=== PATIENT | female | born 2000 | race Caucasian/White ===

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

== ENCOUNTER 2023-12-31 04:56 | Emergency (ER) | payer OTHER ==
[2023-12-31 05:10] VITALS: RESP 17; TEMP 97.6
[2023-12-31 05:39] LABS: Absolute Neutrophil Ct (ANC) 6.35 x10^3/uL (1.4-6.9); BASOPHIL % 0.4 % (0.0-0.4); Basophil (Absolute #) 0.04 x10^3/uL (0-0.4); Eosinophil % 0.5 % (0.00-5.0); Eosinophil (Absolute #) 0.05 x10^3/uL (0-0.5); Hematocrit 28.5 % (35-47); Hemoglobin 9.7 g/dL (12.0-16.0); IMMATURE GRAN # 0.18 x10^3u/L (0.00-0.03); Lymphocyte (Absolute #) 1.65 x10^3/uL (1.0-4.6); Lymphocytes % 18.1 % (24.0-44.0); Mean Cell Volume 88.2 fL (78-100); Mean Platelet Volume 9.3 fL (7.5-11.0); Monocyte (Absolute #) 0.85 x10^3/uL (0.0-1.3); Monocytes % 9.3 % (0.0-12.0); Neutrophil % 69.7 % (36.0-66.0); Platelet Count 209 x10^3/uL (150-450); Red Blood Count 3.23 x10^6/uL (4.1-5.4); Red Cell Distribution Width 12.8 % (11.5-14.0); White Blood Count 9.1 x10^3/uL (4.0-10.5)
[2023-12-31 05:51] LABS: ALBUMIN 2.8 g/dL (3.5-5.0); ANION GAP 8.7 MEQ/L (5-15); BILIRUBIN,TOTAL 0.3 mg/dL (0.2-1.3); Calcium 8.5 mg/dL (8.4-10.2); Creatinine 1 0.33 mg/dL (0.52-1.04); EST GLOMERULAR FILTRATION RATE 151.2 ML/MIN; Potassium 3.1 mmol/L (3.5-5.1); Total Protein 5.9 g/dL (6.3-8.2)
[2023-12-31 06:10] LABS: Appearance Clear (Clear); Bacteria Rare /HPF (None Seen); Bilirubin Negative (Negative); Blood Negative (Negative); Epithelial Cells Few /HPF (None Seen); Glucose, Urine Negative (Negative); Hyaline Casts NONE SEEN /LPF (0-2); Ketones Negative (Negative); Leukocyte Esterase Negative (Negative); Nitrite Negative (Negative); Protein,Urine Dip Negative (Negative); RBC 0-2 /HPF (0-5); Specific Gravity 1.015 (1.005-1.030); Urobilinogen 0.2 mg/dL (0.2); WBC 0-2 /HPF (0-5)
[2023-12-31 06:15] LABS: ADD URINE CULTURE? NO (NO)
[2023-12-31] MEDS ORDERED: Klor Con ONE (06:51)
[2023-12-31] MEDS: Klor Con PO ONE (06:52)
[2023-12-31 07:02] VITALS: BP 119/68; PULSE 87
[2023-12-31 07:06] VITALS: O2SAT 97
--- NOTE | 2023-12-31 07:06 | ERPHSYRPT ---
- History of Present Illness Time Seen by Provider: 12/31/23 05:15 Historian: patient, family Exam Limitations: no limitations Patient Subjective Stated Complaint: chest pain that radiates to middle of back that started around 2099 last night while patient was watching tv Triage Nursing Assessment: pt ambulatory to bed by self with steady gait, pt alert and oriented x3, skin pwd, pt c/o center chest pain that radiates to the center of her back since 2099 last night, pt started when she was watching tv and pt states it hurts worse when she inhales, radial pulses equal and strong bilateral, heart sounds regular Physician History: This is a 23-year-old white female patient who is 34 weeks and was watching TV last evening on 12/30/2023 when she had a sudden onset of central, substernal chest pressure that radiated into her back. It was constant and worse with deep breathing. She has not been coughing. She has had no hemoptysis. She does not have shortness of breath. There is no history of bleeding or clotting disorder. She has no history of coronary artery disease. She has no history of DVT or pulmonary embolus. She was concerned because it became more constant. Patient denies abdominal pain. She also denies vaginal discharge. 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 tomorrow, 01/01/2024 Timing/Duration: yesterday Quality: pressure Location: substernal, central Chest Pain Radiation: back Severity of Pain-Max: moderate Severity of Pain-Current: none Modifying Factors: Improves With: breathing (Deep breathing exacerbated her symptoms initially) Associated Symptoms: back pain (The chest pain initially did radiate into her back), No abdominal pain, No shortness of breath, No cough Prior Chest Pain/Cardiac Workup: no prior chest pain, no prior cardiac workup Nitro Today/Relief: no nitro taken today Aspirin Treatment Today: no aspirin today Allergies/Adverse Reactions: azithromycin [From Zithromax] Allergy (Intermediate, Verified 12/31/23 04:58) Rash Home Medications: 21/Iron Fu/Folic Acid [ Complete Caplet] 1 tab PO DAILY 12/31/23 [History] Hx Tetanus, Diphtheria Vaccination/Date Given: Yes Hx Influenza Vaccination/Date Given: No Hx Pneumococcal Vaccination/Date Given: No Immunizations Up to Date: No Travel Risk - International Travel Have you traveled outside of the country in past 3 weeks: No - Emerging Infectious Disease Are you exhibiting symptoms associated with any current EIDs: No - Review of Systems Constitutional: No Symptoms Eyes: No Symptoms Ears, Nose, & Throat: No Symptoms Respiratory: Dyspnea (Mild initially with deep breathing) Cardiac: Chest Pain (Described more as a pressure) Abdominal/Gastrointestinal: No Symptoms Genitourinary Symptoms: No Symptoms Musculoskeletal: No Symptoms Skin: No Symptoms Neurological: No Symptoms Psychological: No Symptoms Endocrine: No Symptoms Hematologic/Lymphatic: No Symptoms Immunological/Allergic: No Symptoms All Other Systems: Reviewed and Negative - Past Medical History Pertinent Past Medical History: No Neurological History: No Pertinent History ENT History: No Pertinent History Cardiac History: No Pertinent History Respiratory History: No Pertinent History Endocrine Medical History: No Pertinent History Musculoskeletal History: No Pertinent History GI Medical History: No Pertinent History History: No Pertinent History Psycho-Social History: No Pertinent History Female Reproductive Disorders: No Pertinent History Other Medical History: vaginal delivery - Past Surgical History Past Surgical History: No Neuro Surgical History: No Pertinent History Cardiac: No Pertinent History Respiratory: No Pertinent History Gastrointestinal: No Pertinent History Genitourinary: No Pertinent History Musculoskeletal: No Pertinent History Female Surgical History: No Pertinent History - Female History Hx Now: Yes Gestational Age: 34 weeks - Social History Smoking Status: Never smoker Exposure to second hand smoke: No Drug Use: none Patient Lives Alone: No - Nursing Vital Signs Nursing Vital Signs: Initial Vital Signs Temperature 97.6 F 12/31/23 04:57 Pulse Rate 100 H 12/31/23 04:57 Respiratory Rate 17 12/31/23 04:57 Blood Pressure 113/67 12/31/23 04:57 O2 Sat by Pulse Oximetry 97 12/31/23 04:57 Pain Scale Pain Intensity 10 - Physical Exam General Appearance: no apparent distress, alert, anxiety Eye Exam: PERRL/EOMI, eyes nml inspection Ears, Nose, Throat Exam: normal ENT inspection, moist mucous membranes Neck Exam: normal inspection, non-tender, supple, full range of motion Respiratory Exam: normal breath sounds, lungs clear, airway intact, No chest tenderness, No respiratory distress Cardiovascular Exam: regular rate/rhythm, normal heart sounds, normal peripheral pulses Gastrointestinal/Abdomen Exam: soft, normal bowel sounds, No tenderness Pelvic Exam: not done Rectal Exam: not done Back Exam: normal inspection, normal range of motion, No CVA tenderness, No vertebral tenderness Extremity Exam: normal inspection, normal range of motion, pelvis stable Neurologic Exam: alert, oriented x 3, cooperative, gold miner II-XII nml as tested, normal mood/affect, nml cerebellar function, nml station & gait, sensation nml Skin Exam: normal color, warm, dry Lymphatic Exam: No adenopathy SpO2 Interpretation: normal SpO2: 97 O2 Delivery: Room Air - Course Nursing assessment & vital signs reviewed: Yes EKG Interpreted by Me: RATE ([id number]), Sinus Rhythm, NORMAL AXIS, NORMAL INTERVALS, NORMAL QRS, Other (Acute ischemic changes on today's twelve-lead EKG.) Ordered Tests: Active Orders 24 hr Category Date Time Status 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 Care 12/31/23 05:19 Active EKG-ER Only STAT Care 12/31/23 05:19 Active IV Insertion STAT Care 12/31/23 05:19 Active Pulse Oximetry (ED) STAT Care 12/31/23 05:19 Active CBC W DIFF Stat Lab 12/31/23 05:35 Completed CMP Stat Lab 12/31/23 05:35 Completed TROPONIN Q4H Lab 12/31/23 05:35 Completed TROPONIN Q4H Lab 12/31/23 09:30 Ordered TROPONIN Q4H Lab 12/31/23 13:30 Ordered UA W/RFX UR CULTURE Stat Lab 12/31/23 05:48 Completed Medication Summary Discontinued Medications Generic Name Dose Route Start Last Admin Trade Name Freq PRN Reason Stop Dose Admin Potassium Chloride 20 meq 12/31/23 06:49 12/31/23 06:52 Potassium Chloride Tab 10 Meq Tab PO 12/31/23 06:50 20 meq STAT ONE Administration Potassium Chloride Confirm 12/31/23 06:51 Potassium Chloride Tab 10 Meq Tab Administered 12/31/23 06:52 Dose 20 meq .ROUTE .STK-MED ONE Lab/Rad Data: Laboratory Result Diagrams 12/31/23 05:35 12/31/23 05:35 Laboratory Results 12/31/23 12/31/23 12/31/23 Range/Units 05:48 05:35 05:35 WBC (4.0-10.5) x10^3/uL RBC (4.1-5.4) x10^6/uL Hgb (12.0-16.0) g/dL Hct (35-47) % MCV (78-100) fL MCH (26-32) pg MCHC (32-36) g/dL RDW (11.5-14.0) % Plt Count (150-450) x10^3/uL MPV (7.5-11.0) fL Gran % (36.0-66.0) % Immature Gran % (Auto) (0.00-0.4) % Nucleat RBC Rel Count (0.00-0.1) % Eos # (Auto) (0-0.5) x10^3/uL Immature Gran # (Auto) (0.00-0.03) x10^3u/L Absolute Lymphs (auto) (1.0-4.6) x10^3/uL Absolute Monos (auto) (0.0-1.3) x10^3/uL Absolute Nucleated RBC (0.00-0.01) x10^3u/L Lymphocytes % (24.0-44.0) % Monocytes % (0.0-12.0) % Eosinophils % (0.00-5.0) % Basophils % (0.0-0.4) % Absolute Granulocytes (1.4-6.9) x10^3/uL Basophils # (0-0.4) x10^3/uL Sodium 135 (135-145) mmol/L Potassium 3.1 L (3.5-5.1) mmol/L Chloride 109 H (98-107) mmol/L Carbon Dioxide 20 L (22-30) mmol/L Anion Gap 8.7 (5-15) MEQ/L BUN 7 (7-17) mg/dL Creatinine 0.33 L (0.52-1.04) mg/dL Estimated GFR 151.2 ML/MIN Glucose 95 (74-106) mg/dL Calcium 8.5 (8.4-10.2) mg/dL Total Bilirubin 0.30 (0.2-1.3) mg/dL AST 23 (14-36) U/L ALT 12 (0-35) U/L Alkaline Phosphatase 76 (38-126) U/L Troponin I < 0.012 (0.000-0.033) ng/mL Serum Total Protein 5.9 L (6.3-8.2) g/dL Albumin 2.8 L (3.5-5.0) g/dL Urine Color Yellow (Yellow) Urine Appearance Clear (Clear) Urine pH 6.0 (4.6-8.0) Ur Specific Randall 1.015 (1.005-1.030) Urine Protein Negative (Negative) Urine Glucose (UA) Negative (Negative) mg/dL Urine Ketones Negative (Negative) Urine Blood Negative (Negative) Urine Nitrite Negative (Negative) Urine Bilirubin Negative (Negative) Urine Urobilinogen 0.2 (0.2) mg/dL Ur Leukocyte Esterase Negative (Negative) U Hyaline Cast (Auto) NONE SEEN (0-2) /LPF Urine Microscopic RBC 0-2 (0-5) /HPF Urine Microscopic WBC 0-2 (0-5) /HPF Ur Epithelial Cells Few (None Seen) /HPF Urine Bacteria Rare A (None Seen) /HPF Urine Culture Reflexed NO (NO) 12/31/23 Range/Units 05:35 WBC 9.1 (4.0-10.5) x10^3/uL RBC 3.23 L (4.1-5.4) x10^6/uL Hgb 9.7 L (12.0-16.0) g/dL Hct 28.5 L (35-47) % MCV 88.2 (78-100) fL MCH 30.0 (26-32) pg MCHC 34.0 (32-36) g/dL RDW 12.8 (11.5-14.0) % Plt Count 209 (150-450) x10^3/uL MPV 9.3 (7.5-11.0) fL Gran % 69.7 H (36.0-66.0) % Immature Gran % (Auto) 2.0 H (0.00-0.4) % Nucleat RBC Rel Count 0.0 (0.00-0.1) % Eos # (Auto) 0.05 (0-0.5) x10^3/uL Immature Gran # (Auto) 0.18 H (0.00-0.03) x10^3u/L Absolute Lymphs (auto) 1.65 (1.0-4.6) x10^3/uL Absolute Monos (auto) 0.85 (0.0-1.3) x10^3/uL Absolute Nucleated RBC 0.00 (0.00-0.01) x10^3u/L Lymphocytes % 18.1 L (24.0-44.0) % Monocytes % 9.3 (0.0-12.0) % Eosinophils % 0.5 (0.00-5.0) % Basophils % 0.4 (0.0-0.4) % Absolute Granulocytes 6.35 (1.4-6.9) x10^3/uL Basophils # 0.04 (0-0.4) x10^3/uL Sodium (135-145) mmol/L Potassium (3.5-5.1) mmol/L Chloride (98-107) mmol/L Carbon Dioxide (22-30) mmol/L Anion Gap (5-15) MEQ/L BUN (7-17) mg/dL Creatinine (0.52-1.04) mg/dL Estimated GFR ML/MIN Glucose (74-106) mg/dL Calcium (8.4-10.2) mg/dL Total Bilirubin (0.2-1.3) mg/dL AST (14-36) U/L ALT (0-35) U/L Alkaline Phosphatase (38-126) U/L Troponin I (0.000-0.033) ng/mL Serum Total Protein (6.3-8.2) g/dL Albumin (3.5-5.0) g/dL Urine Color (Yellow) Urine Appearance (Clear) Urine pH (4.6-8.0) Ur Specific Randall (1.005-1.030) Urine Protein (Negative) Urine Glucose (UA) (Negative) mg/dL Urine Ketones (Negative) Urine Blood (Negative) Urine Nitrite (Negative) Urine Bilirubin (Negative) Urine Urobilinogen (0.2) mg/dL Ur Leukocyte Esterase (Negative) U Hyaline Cast (Auto) (0-2) /LPF Urine Microscopic RBC (0-5) /HPF Urine Microscopic WBC (0-5) /HPF Ur Epithelial Cells (None Seen) /HPF Urine Bacteria (None Seen) /HPF Urine Culture Reflexed (NO) - Progress Progress: improved, re-examined Air Movement: good Progress Note: 12/31/23 07:09 My medical decision making and the assignment of moderate complexity to this patient's medical issue today is based on review of the patient's past medical history, review of the patient's medication list, review of patient drug allergy list, review of history of present illness and physical findings on examination. Patient's workup includes placement of intravenous line, CBC, CMP, twelve-lead EKG, troponin level, urinalysis. Differential diagnosis includes symptoms of , muscle skeletal pain, anemia of , myocardial infarction, electrolyte abnormalities, arrhythmia I did not order a D-dimer level as this would likely be elevated and I think the patient has a low probability of a pulmonary embolism. I did discuss this with the patient. I also did not order a chest x-ray as she is 34 weeks , she has a room air oxygen saturation level 99%, she is not tachycardic and she has not had a fever or cough symptoms. She has no flulike symptoms. 12/31/23 07:12 I told the patient to make certain that she discusses last evening symptoms of chest pain with her division commander. Blood Culture(s) Obtained: No Antibiotics given: No Counseled pt/family regarding: lab results, diagnosis, need for follow-up Medical Desision Making - Independent Historian Additional History obtained from: Spouse - Diagnostic Testing Diagnostic test were ordered, analyzed, and reviewed by me: Yes - Risk of complications The pt has a mod risk of morbidity or mortality based on: Need for prescription drug management - Departure Departure Disposition: Home Clinical Impression: Nonspecific chest pain, Hypokalemia Condition: Stable Critical Care Time: No Referrals: ROLDAN PRETTY MD [Primary Care Provider] - Follow up/PCP as directed Additional Instructions: Drink plenty fluids. Take your medication as prescribed. Follow-up with your division commander at your scheduled appointment tomorrow, 01/01/2024. Prescriptions: Potassium Chloride Tab* [Klor Con] 10 meq PO DAILY #4 tab
== END 2023-12-31 07:22 | disposition home or self-care (01) ==
LOC: ED 04:56
DX: R07.89 Other chest pain (principal); E87.6 Hypokalemia; Z33.1 Pregnant state, incidental
CPT/HCPCS: 36000; 36415; 80053; 81001; 84484; 85025; 93005; 93041; 94760; 99284; A9270-GY

== ENCOUNTER 2024-01-25 15:55 | Observation (INO) | payer OTHER ==
[2024-01-25 16:17] VITALS: BP 132/64; PULSE 121; RESP 18; TEMP 97.9; O2SAT 99
[2024-01-25 16:48] LABS: Amphetamine,Urine NEGATIVE (NEGATIVE); Barbiturate,Urine NEGATIVE (NEGATIVE); Benzodiazepine,Urine NEGATIVE (NEGATIVE); Cocaine,Urine NEGATIVE (NEGATIVE); Methadone,Urine NEGATIVE (NEGATIVE); Opiate,Urine NEGATIVE (NEGATIVE); PCP,Urine NEGATIVE (NEGATIVE); THC,Urine NEGATIVE (NEGATIVE)
== END 2024-01-25 17:38 | disposition home or self-care (01) ==
LOC: OB 15:55
PROVIDERS: ADMIT Family Medicine; ATTEND Family Medicine
DX: Z34.83 Encounter for supervision of other normal pregnancy, third trimester (principal); Z3A.37 37 weeks gestation of pregnancy
CPT/HCPCS: 80307

== ENCOUNTER 2024-01-31 22:03 | Observation (INO) | payer OTHER ==
[2024-01-31 22:41] VITALS: RESP 20; TEMP 97.7; O2SAT 98
[2024-01-31 23:37] VITALS: BP 119/59; PULSE 95
== END 2024-01-31 23:47 | disposition home or self-care (01) ==
LOC: OB 22:03
PROVIDERS: ADMIT Obstetrics & Gynecology; ATTEND Obstetrics & Gynecology
DX: Z34.83 Encounter for supervision of other normal pregnancy, third trimester (principal); Z3A.38 38 weeks gestation of pregnancy
CPT/HCPCS: G0378; G0379

== ENCOUNTER 2024-02-04 01:57 | Observation (INO) | payer OTHER ==
[2024-02-04 02:54] VITALS: BP 114/67; PULSE 134; RESP 20; TEMP 97.8; O2SAT 99
[2024-02-04] MEDS ORDERED: Zofran 4 MG/2 ML VIAL IV PRN ×2 (03:05→03:20)
[2024-02-04] MEDS ORDERED: Lactated Ringers 1,000 ML IV ONE (03:09)
[2024-02-04] MEDS: Lactated Ringers 1,000 ML IV ONE (03:10)
[2024-02-04 03:11] LABS: Appearance Clear (Clear); Bacteria Few /HPF (None Seen); Bilirubin Negative (Negative); Blood Negative (Negative); Epithelial Cells Few /HPF (None Seen); Glucose, Urine Negative (Negative); Hyaline Casts NONE SEEN /LPF (0-2); Ketones 15 (Negative); Leukocyte Esterase Small (Negative); Nitrite Negative (Negative); Ph 7.5 (4.6-8.0); Protein,Urine Dip 30 (Negative); RBC 0-2 /HPF (0-5)
[2024-02-04 03:17] LABS: ADD URINE CULTURE? YES (NO)
[2024-02-04 03:22] LABS: Amphetamine,Urine NEGATIVE (NEGATIVE); Barbiturate,Urine NEGATIVE (NEGATIVE); Benzodiazepine,Urine NEGATIVE (NEGATIVE); Cocaine,Urine NEGATIVE (NEGATIVE); Methadone,Urine NEGATIVE (NEGATIVE); Opiate,Urine NEGATIVE (NEGATIVE); PCP,Urine NEGATIVE (NEGATIVE); THC,Urine NEGATIVE (NEGATIVE)
== END 2024-02-04 05:00 | disposition home or self-care (01) ==
LOC: UNDOADMOB 01:57 → MED SURG 01:57
PROVIDERS: ADMIT Family Medicine; ATTEND Family Medicine
DX: Z34.83 Encounter for supervision of other normal pregnancy, third trimester (principal); Z3A.38 38 weeks gestation of pregnancy
CPT/HCPCS: 80307; 81001; 87086; G0378; G0379

== ENCOUNTER 2024-02-04 19:28 | Observation (INO) | payer OTHER ==
[2024-02-04 20:18] LABS: Absolute Neutrophil Ct (ANC) 5.97 x10^3/uL (1.4-6.9); BASOPHIL % 0.1 % (0.0-0.4); Basophil (Absolute #) 0.01 x10^3/uL (0-0.4); Eosinophil % 0.3 % (0.00-5.0); Eosinophil (Absolute #) 0.02 x10^3/uL (0-0.5); Hematocrit 31.6 % (35-47); Hemoglobin 10.4 g/dL (12.0-16.0); IMMATURE GRAN # 0.13 x10^3u/L (0.00-0.03); IMMATURE GRAN % 1.7 % (0.00-0.4); Lymphocyte (Absolute #) 0.93 x10^3/uL (1.0-4.6); Lymphocytes % 12.1 % (24.0-44.0); Mean Cell Volume 82.7 fL (78-100); Mean Corpuscular Hemoglobin 27.2 pg (26-32); Mean Corpuscular Hgb Concent. 32.9 g/dL (32-36); Mean Platelet Volume 9.4 fL (7.5-11.0); Monocyte (Absolute #) 0.63 x10^3/uL (0.0-1.3); Monocytes % 8.2 % (0.0-12.0); Neutrophil % 77.6 % (36.0-66.0); Platelet Count 268 x10^3/uL (150-450); Red Blood Count 3.82 x10^6/uL (4.1-5.4); Red Cell Distribution Width 14.8 % (11.5-14.0); White Blood Count 7.7 x10^3/uL (4.0-10.5)
[2024-02-04] MEDS: Lactated Ringers 1,000 ML IV ONE (20:29)
[2024-02-04 20:30] LABS: ADD URINE CULTURE? NO (NO); Appearance Clear (Clear); Bacteria None Seen /HPF (None Seen); Bilirubin Negative (Negative); Blood Negative (Negative); Epithelial Cells None Seen /HPF (None Seen); Glucose, Urine Negative (Negative); Hyaline Casts NONE SEEN /LPF (0-2); Ketones 15 (Negative); Leukocyte Esterase Trace (Negative); Nitrite Negative (Negative); Protein,Urine Dip Negative (Negative); RBC 0-2 /HPF (0-5); WBC 0-2 /HPF (0-5)
[2024-02-04] MEDS ORDERED: TYLENOL EXTRA STRENGTH 500 MG PO PRN (20:30)
[2024-02-04 20:31] LABS: Creatinine, Urine Random 50.4 mg/dl; Protein Creatinine Ratio, Ran. 0.36 mg/mg (0.0-0.15)
[2024-02-04 20:40] LABS: ALBUMIN 3.4 g/dL (3.5-5.0); ANION GAP 10.7 MEQ/L (5-15); BILIRUBIN,TOTAL 0.5 mg/dL (0.2-1.3); Calcium 8.9 mg/dL (8.4-10.2); Creatinine 1 0.33 mg/dL (0.52-1.04); EST GLOMERULAR FILTRATION RATE 151.2 ML/MIN; Potassium 3.4 mmol/L (3.5-5.1); Total Protein 6.7 g/dL (6.3-8.2); Uric Acid 3.6 mg/dL (2.6-6.0)
[2024-02-04 20:41] LABS: Amphetamine,Urine NEGATIVE (NEGATIVE); Barbiturate,Urine NEGATIVE (NEGATIVE); Benzodiazepine,Urine NEGATIVE (NEGATIVE); Cocaine,Urine NEGATIVE (NEGATIVE); Methadone,Urine NEGATIVE (NEGATIVE); Opiate,Urine NEGATIVE (NEGATIVE); PCP,Urine NEGATIVE (NEGATIVE); THC,Urine NEGATIVE (NEGATIVE)
[2024-02-04] MEDS: Lactated Ringers 1,000 ML IV SCH (21:46)
--- NOTE | 2024-02-05 08:47 | PCM.SSS ---
History of Present Illness - Chief Complaint Chief Complaint: nausea, vomiting and diarrhea History of Present Illness: is a 23 year old female at 38 5/7 wks EGA who has been to labor and delivery over the weekend then returned yesterday for nausea, vomiting and diarrhea. she has no abdominal pain or fever, symptoms began 3 days ago. she was found to have ketones in her urine, bp has been normal overnight. she has been hydrated, she is nauseated this morning and has had diarrhea. she was able to eat some crackers and apple sauce yesterday, had a very small amount of chicken nugget and lithuanian fries from [employer] last night. - Review of Systems Constitutional: No Fever, No Chills Respiratory: No Cough, No Short Of Breath Cardiac: No Chest Pain, No Edema, No Syncope Abdominal/Gastrointestinal: Nausea, Vomiting, Diarrhea, No Abdominal Pain, No Hematemesis, No Hematochezia, No Melena Genitourinary Symptoms: No Dysuria Skin: No Rash All Other Systems: Reviewed and Negative Medications & Allergies Home Medications: Home Medication List 21/Iron Fu/Folic Acid [ Complete Caplet] 1 tab PO DAILY 12/31/23 [History Confirmed 02/05/24] Ondansetron ODT 4 MG [Zofran Odt 4 mg] 4 mg PO Q6H PRN PRN #20 tablet 02/05/24 [Rx] Allergies/Adverse Reactions: Allergies Allergy/AdvReac Type Severity Reaction Status Date / Time azithromycin [From Zithromax] Allergy Intermediate Rash Verified 02/04/24 02:05 - Past Medical History Past Medical History: No Neurological History: No Pertinent History ENT History: No Pertinent History Cardiac History: No Pertinent History Respiratory History: No Pertinent History Endocrine Medical History: No Pertinent History Musculoskelatal History: No Pertinent History GI Medical History: No Pertinent History History: No Pertinent History Pyscho-Social History: No Pertinent History Reproductive Disorders: No Pertinent History Comment: vaginal delivery - Past Surgical History Past Surgical History: No Neuro Surgical History: No Pertinent History Cardiac History: No Pertinent History Respiratory Surgery: No Pertinent History GI Surgical History: No Pertinent History Genitourinary Surgical Hx: No Pertinent History Musculskeletal Surgical Hx: No Pertinent History Female Surgical History: No Pertinent History - Social History Smoking Status: Never smoker Exposure to second hand smoke: No Alcohol: None Drug Use: none - Social Determinants of Health Will the patient participate in the screening: Yes Do you worry about a steady place to live?: No Do you have any problems with any of the following?: No known problems In the past 12 months,have you had to go without utilities?: No Have you or anyone in your house had to go without enough: No Transportation Issues: No Has anyone in your support network made you feel unsafe?: No Does the patient want assistance with any of the above?: No - Physical Exam Vital Signs: Vital Signs - 24 hr Temp Pulse Resp BP BP Pulse Ox 02/05/24 05:27 96 H 18 106/52 96 02/05/24 01:47 98 F 113 H 16 102/50 96 02/04/24 23:24 111 H 16 02/04/24 23:23 111 H 16 02/04/24 23:21 111 H 16 02/04/24 21:46 111 H 16 02/04/24 21:45 111 H 16 118/69 02/04/24 21:30 97 H 16 117/65 97 02/04/24 21:15 100 H 16 114/65 02/04/24 21:00 111 H 16 117/68 100 02/04/24 20:50 97 H 16 117/65 97 02/04/24 20:33 98.4 F 120 H 20 127/63 98 02/04/24 20:15 105 H 16 118/76 97 02/04/24 20:02 98.4 F 120 H 20 127/63 98 02/04/24 19:55 111 H 16 02/04/24 19:28 98.4 F 120 H 20 98 General Appearance: no apparent distress Neurologic Exam: alert, oriented x 3, cooperative Respiratory Exam: normal breath sounds, lungs clear, No respiratory distress Cardiovascular Exam: regular rate/rhythm, normal heart sounds, normal peripheral pulses Gastrointestinal/Abdomen Exam: soft, normal bowel sounds, other (term, gravid uterus SVE 1cm/10%/-3, posterior), No tenderness, No mass Extremity Exam: normal inspection, normal range of motion, pelvis stable Skin Exam: normal color, warm, dry, No rash Results - Labs Lab/Micro Results: Lab Results-Last 24 Hours 02/04/24 02/04/24 02/04/24 Range/Units 20:05 20:05 20:05 WBC (4.0-10.5) x10^3/uL RBC (4.1-5.4) x10^6/uL Hgb (12.0-16.0) g/dL Hct (35-47) % MCV (78-100) fL MCH (26-32) pg MCHC (32-36) g/dL RDW (11.5-14.0) % Plt Count (150-450) x10^3/uL MPV (7.5-11.0) fL Gran % (36.0-66.0) % Immature Gran % (Auto) (0.00-0.4) % Nucleat RBC Rel Count (0.00-0.1) % Eos # (Auto) (0-0.5) x10^3/uL Immature Gran # (Auto) (0.00-0.03) x10^3u/L Absolute Lymphs (auto) (1.0-4.6) x10^3/uL Absolute Monos (auto) (0.0-1.3) x10^3/uL Absolute Nucleated RBC (0.00-0.01) x10^3u/L Lymphocytes % (24.0-44.0) % Monocytes % (0.0-12.0) % Eosinophils % (0.00-5.0) % Basophils % (0.0-0.4) % Absolute Granulocytes (1.4-6.9) x10^3/uL Basophils # (0-0.4) x10^3/uL Sodium (135-145) mmol/L Potassium (3.5-5.1) mmol/L Chloride (98-107) mmol/L Carbon Dioxide (22-30) mmol/L Anion Gap (5-15) MEQ/L BUN (7-17) mg/dL Creatinine (0.52-1.04) mg/dL Estimated GFR ML/MIN Glucose (74-106) mg/dL Uric Acid (2.6-6.0) mg/dL Calcium (8.4-10.2) mg/dL Total Bilirubin (0.2-1.3) mg/dL AST (14-36) U/L ALT (0-35) U/L Alkaline Phosphatase (38-126) U/L Lactate Dehydrogenase (120-246) U/L Serum Total Protein (6.3-8.2) g/dL Albumin (3.5-5.0) g/dL Urine Color Yellow (Yellow) Urine Appearance Clear (Clear) Urine pH 8.0 (4.6-8.0) Ur Specific Elkins 1.010 (1.005-1.030) Urine Protein Negative (Negative) Urine Glucose (UA) Negative (Negative) mg/dL Urine Ketones 15 A (Negative) Urine Blood Negative (Negative) Urine Nitrite Negative (Negative) Urine Bilirubin Negative (Negative) Urine Urobilinogen 1.0 A (0.2) mg/dL Ur Leukocyte Esterase Trace A (Negative) U Hyaline Cast (Auto) NONE SEEN (0-2) /LPF Urine Microscopic RBC 0-2 (0-5) /HPF Urine Microscopic WBC 0-2 (0-5) /HPF Ur Epithelial Cells None Seen (None Seen) /HPF Urine Bacteria None Seen (None Seen) /HPF Urine Culture Reflexed NO (NO) Ur Random Creatinine 50.4 mg/dl U Random Total Protein 18.0 (<12) mg/dl U [place] Prot/Creat Ratio 0.36 H (0.0-0.15) mg/mg Urine Opiates Level NEGATIVE (NEGATIVE) Ur Methadone NEGATIVE (NEGATIVE) Urine Barbiturates NEGATIVE (NEGATIVE) Ur Phencyclidine (PCP) NEGATIVE (NEGATIVE) Urine Amphetamine NEGATIVE (NEGATIVE) U Benzodiazepine Level NEGATIVE (NEGATIVE) Urine Cocaine NEGATIVE (NEGATIVE) Urine Marijuana (THC) NEGATIVE (NEGATIVE) 02/04/24 02/04/24 Range/Units 20:15 20:15 WBC 7.7 (4.0-10.5) x10^3/uL RBC 3.82 L (4.1-5.4) x10^6/uL Hgb 10.4 L (12.0-16.0) g/dL Hct 31.6 L (35-47) % MCV 82.7 (78-100) fL MCH 27.2 (26-32) pg MCHC 32.9 (32-36) g/dL RDW 14.8 H (11.5-14.0) % Plt Count 268 (150-450) x10^3/uL MPV 9.4 (7.5-11.0) fL Gran % 77.6 H (36.0-66.0) % Immature Gran % (Auto) 1.7 H (0.00-0.4) % Nucleat RBC Rel Count 0.0 (0.00-0.1) % Eos # (Auto) 0.02 (0-0.5) x10^3/uL Immature Gran # (Auto) 0.13 H (0.00-0.03) x10^3u/L Absolute Lymphs (auto) 0.93 L (1.0-4.6) x10^3/uL Absolute Monos (auto) 0.63 (0.0-1.3) x10^3/uL Absolute Nucleated RBC 0.00 (0.00-0.01) x10^3u/L Lymphocytes % 12.1 L (24.0-44.0) % Monocytes % 8.2 (0.0-12.0) % Eosinophils % 0.3 (0.00-5.0) % Basophils % 0.1 (0.0-0.4) % Absolute Granulocytes 5.97 (1.4-6.9) x10^3/uL Basophils # 0.01 (0-0.4) x10^3/uL Sodium 134 L (135-145) mmol/L Potassium 3.4 L (3.5-5.1) mmol/L Chloride 107 (98-107) mmol/L Carbon Dioxide 19 L (22-30) mmol/L Anion Gap 10.7 (5-15) MEQ/L BUN 5 L (7-17) mg/dL Creatinine 0.33 L (0.52-1.04) mg/dL Estimated GFR 151.2 ML/MIN Glucose 91 (74-106) mg/dL Uric Acid 3.6 (2.6-6.0) mg/dL Calcium 8.9 (8.4-10.2) mg/dL Total Bilirubin 0.50 (0.2-1.3) mg/dL AST 29 (14-36) U/L ALT 17 (0-35) U/L Alkaline Phosphatase 116 (38-126) U/L Lactate Dehydrogenase 164 (120-246) U/L Serum Total Protein 6.7 (6.3-8.2) g/dL Albumin 3.4 L (3.5-5.0) g/dL Urine Color (Yellow) Urine Appearance (Clear) Urine pH (4.6-8.0) Ur Specific Elkins (1.005-1.030) Urine Protein (Negative) Urine Glucose (UA) (Negative) mg/dL Urine Ketones (Negative) Urine Blood (Negative) Urine Nitrite (Negative) Urine Bilirubin (Negative) Urine Urobilinogen (0.2) mg/dL Ur Leukocyte Esterase (Negative) U Hyaline Cast (Auto) (0-2) /LPF Urine Microscopic RBC (0-5) /HPF Urine Microscopic WBC (0-5) /HPF Ur Epithelial Cells (None Seen) /HPF Urine Bacteria (None Seen) /HPF Urine Culture Reflexed (NO) Ur Random Creatinine mg/dl U Random Total Protein (<12) mg/dl U [place] Prot/Creat Ratio (0.0-0.15) mg/mg Urine Opiates Level (NEGATIVE) Ur Methadone (NEGATIVE) Urine Barbiturates (NEGATIVE) Ur Phencyclidine (PCP) (NEGATIVE) Urine Amphetamine (NEGATIVE) U Benzodiazepine Level (NEGATIVE) Urine Cocaine (NEGATIVE) Urine Marijuana (THC) (NEGATIVE) Assessment/Plan (1) Dehydration Current Visit: Yes Status: Acute Assessment & Plan: receiving IV hydration, will give zofran and try to advance diet. Code(s): E86.0 - DEHYDRATION (2) Nausea and vomiting Current Visit: Yes Status: Acute Code(s): R11.2 - NAUSEA WITH VOMITING, UNSPECIFIED (3) Diarrhea Current Visit: Yes Status: Acute Code(s): R19.7 - DIARRHEA, UNSPECIFIED Hospital Summary - Vitals & Intake/Output Vital Signs: Vital Signs Temperature 98 F 02/05/24 01:47 Pulse Rate 96 H 02/05/24 05:27 Respiratory Rate 18 02/05/24 05:27 Blood Pressure 106/52 02/05/24 05:27 O2 Sat by Pulse Oximetry 96 02/05/24 05:27 - Lab Result Diagrams: 02/04/24 20:15 02/04/24 20:15 Lab Results-Last 24 Hrs: Lab Results-Last 24 Hours 02/04/24 02/04/24 02/04/24 Range/Units 20:05 20:05 20:05 WBC (4.0-10.5) x10^3/uL RBC (4.1-5.4) x10^6/uL Hgb (12.0-16.0) g/dL Hct (35-47) % MCV (78-100) fL MCH (26-32) pg MCHC (32-36) g/dL RDW (11.5-14.0) % Plt Count (150-450) x10^3/uL MPV (7.5-11.0) fL Gran % (36.0-66.0) % Immature Gran % (Auto) (0.00-0.4) % Nucleat RBC Rel Count (0.00-0.1) % Eos # (Auto) (0-0.5) x10^3/uL Immature Gran # (Auto) (0.00-0.03) x10^3u/L Absolute Lymphs (auto) (1.0-4.6) x10^3/uL Absolute Monos (auto) (0.0-1.3) x10^3/uL Absolute Nucleated RBC (0.00-0.01) x10^3u/L Lymphocytes % (24.0-44.0) % Monocytes % (0.0-12.0) % Eosinophils % (0.00-5.0) % Basophils % (0.0-0.4) % Absolute Granulocytes (1.4-6.9) x10^3/uL Basophils # (0-0.4) x10^3/uL Sodium (135-145) mmol/L Potassium (3.5-5.1) mmol/L Chloride (98-107) mmol/L Carbon Dioxide (22-30) mmol/L Anion Gap (5-15) MEQ/L BUN (7-17) mg/dL Creatinine (0.52-1.04) mg/dL Estimated GFR ML/MIN Glucose (74-106) mg/dL Uric Acid (2.6-6.0) mg/dL Calcium (8.4-10.2) mg/dL Total Bilirubin (0.2-1.3) mg/dL AST (14-36) U/L ALT (0-35) U/L Alkaline Phosphatase (38-126) U/L Lactate Dehydrogenase (120-246) U/L Serum Total Protein (6.3-8.2) g/dL Albumin (3.5-5.0) g/dL Urine Color Yellow (Yellow) Urine Appearance Clear (Clear) Urine pH 8.0 (4.6-8.0) Ur Specific Elkins 1.010 (1.005-1.030) Urine Protein Negative (Negative) Urine Glucose (UA) Negative (Negative) mg/dL Urine Ketones 15 A (Negative) Urine Blood Negative (Negative) Urine Nitrite Negative (Negative) Urine Bilirubin Negative (Negative) Urine Urobilinogen 1.0 A (0.2) mg/dL Ur Leukocyte Esterase Trace A (Negative) U Hyaline Cast (Auto) NONE SEEN (0-2) /LPF Urine Microscopic RBC 0-2 (0-5) /HPF Urine Microscopic WBC 0-2 (0-5) /HPF Ur Epithelial Cells None Seen (None Seen) /HPF Urine Bacteria None Seen (None Seen) /HPF Urine Culture Reflexed NO (NO) Ur Random Creatinine 50.4 mg/dl U Random Total Protein 18.0 (<12) mg/dl U [place] Prot/Creat Ratio 0.36 H (0.0-0.15) mg/mg Urine Opiates Level NEGATIVE (NEGATIVE) Ur Methadone NEGATIVE (NEGATIVE) Urine Barbiturates NEGATIVE (NEGATIVE) Ur Phencyclidine (PCP) NEGATIVE (NEGATIVE) Urine Amphetamine NEGATIVE (NEGATIVE) U Benzodiazepine Level NEGATIVE (NEGATIVE) Urine Cocaine NEGATIVE (NEGATIVE) Urine Marijuana (THC) NEGATIVE (NEGATIVE) 02/04/24 02/04/24 Range/Units 20:15 20:15 WBC 7.7 (4.0-10.5) x10^3/uL RBC 3.82 L (4.1-5.4) x10^6/uL Hgb 10.4 L (12.0-16.0) g/dL Hct 31.6 L (35-47) % MCV 82.7 (78-100) fL MCH 27.2 (26-32) pg MCHC 32.9 (32-36) g/dL RDW 14.8 H (11.5-14.0) % Plt Count 268 (150-450) x10^3/uL MPV 9.4 (7.5-11.0) fL Gran % 77.6 H (36.0-66.0) % Immature Gran % (Auto) 1.7 H (0.00-0.4) % Nucleat RBC Rel Count 0.0 (0.00-0.1) % Eos # (Auto) 0.02 (0-0.5) x10^3/uL Immature Gran # (Auto) 0.13 H (0.00-0.03) x10^3u/L Absolute Lymphs (auto) 0.93 L (1.0-4.6) x10^3/uL Absolute Monos (auto) 0.63 (0.0-1.3) x10^3/uL Absolute Nucleated RBC 0.00 (0.00-0.01) x10^3u/L Lymphocytes % 12.1 L (24.0-44.0) % Monocytes % 8.2 (0.0-12.0) % Eosinophils % 0.3 (0.00-5.0) % Basophils % 0.1 (0.0-0.4) % Absolute Granulocytes 5.97 (1.4-6.9) x10^3/uL Basophils # 0.01 (0-0.4) x10^3/uL Sodium 134 L (135-145) mmol/L Potassium 3.4 L (3.5-5.1) mmol/L Chloride 107 (98-107) mmol/L Carbon Dioxide 19 L (22-30) mmol/L Anion Gap 10.7 (5-15) MEQ/L BUN 5 L (7-17) mg/dL Creatinine 0.33 L (0.52-1.04) mg/dL Estimated GFR 151.2 ML/MIN Glucose 91 (74-106) mg/dL Uric Acid 3.6 (2.6-6.0) mg/dL Calcium 8.9 (8.4-10.2) mg/dL Total Bilirubin 0.50 (0.2-1.3) mg/dL AST 29 (14-36) U/L ALT 17 (0-35) U/L Alkaline Phosphatase 116 (38-126) U/L Lactate Dehydrogenase 164 (120-246) U/L Serum Total Protein 6.7 (6.3-8.2) g/dL Albumin 3.4 L (3.5-5.0) g/dL Urine Color (Yellow) Urine Appearance (Clear) Urine pH (4.6-8.0) Ur Specific Elkins (1.005-1.030) Urine Protein (Negative) Urine Glucose (UA) (Negative) mg/dL Urine Ketones (Negative) Urine Blood (Negative) Urine Nitrite (Negative) Urine Bilirubin (Negative) Urine Urobilinogen (0.2) mg/dL Ur Leukocyte Esterase (Negative) U Hyaline Cast (Auto) (0-2) /LPF Urine Microscopic RBC (0-5) /HPF Urine Microscopic WBC (0-5) /HPF Ur Epithelial Cells (None Seen) /HPF Urine Bacteria (None Seen) /HPF Urine Culture Reflexed (NO) Ur Random Creatinine mg/dl U Random Total Protein (<12) mg/dl U [place] Prot/Creat Ratio (0.0-0.15) mg/mg Urine Opiates Level (NEGATIVE) Ur Methadone (NEGATIVE) Urine Barbiturates (NEGATIVE) Ur Phencyclidine (PCP) (NEGATIVE) Urine Amphetamine (NEGATIVE) U Benzodiazepine Level (NEGATIVE) Urine Cocaine (NEGATIVE) Urine Marijuana (THC) (NEGATIVE) - Discharge Disposition: Home, Self-Care Condition: Stable Prescriptions: New Ondansetron ODT 4 MG [Zofran Odt 4 mg] 4 mg PO Q6H PRN PRN #20 tablet PRN Reason: Nausea Continue 21/Iron Fu/Folic Acid [ Complete Caplet] 1 tab PO DAILY Follow up with: ROLDAN PRETTY MD [Primary Care Provider] -
[2024-02-05] MEDS: Zofran 4 MG/2 ML VIAL IV PRN (08:54)
[2024-02-05 09:53] VITALS: O2SAT 98
[2024-02-05 14:52] VITALS: BP 122/68; PULSE 88; RESP 20; TEMP 97.9
== END 2024-02-05 16:50 | disposition home or self-care (01) ==
LOC: OB 19:28
PROVIDERS: ADMIT Family Medicine; ATTEND Family Medicine
DX: Z34.83 Encounter for supervision of other normal pregnancy, third trimester (principal); Z3A.38 38 weeks gestation of pregnancy
CPT/HCPCS: 36415; 59025; 80053; 80307; 81001; 82570; 83615; 84156; 84550; 85025; 99213; G0378; G0379; J2405

== ENCOUNTER 2024-02-11 07:14 | Observation (INO) | payer OTHER ==
[2024-02-11 07:44] VITALS: BP 122/81; PULSE 95; RESP 18; TEMP 98.3; O2SAT 99
[2024-02-11 09:19] LABS: Amphetamine,Urine NEGATIVE (NEGATIVE); Barbiturate,Urine NEGATIVE (NEGATIVE); Benzodiazepine,Urine NEGATIVE (NEGATIVE); Cocaine,Urine NEGATIVE (NEGATIVE); Methadone,Urine NEGATIVE (NEGATIVE); Opiate,Urine NEGATIVE (NEGATIVE); PCP,Urine NEGATIVE (NEGATIVE); THC,Urine NEGATIVE (NEGATIVE)
== END 2024-02-11 10:30 | disposition home or self-care (01) ==
LOC: OB 07:14
PROVIDERS: ADMIT Family Medicine; ATTEND Family Medicine
DX: Z34.83 Encounter for supervision of other normal pregnancy, third trimester (principal); Z3A.39 39 weeks gestation of pregnancy
CPT/HCPCS: 80307; G0378; G0379

== ENCOUNTER 2024-02-11 16:25 | Inpatient (IN) | payer OTHER ==
[2024-02-11] MEDS: TYLENOL EXTRA STRENGTH 500 MG PO STA (17:55)
[2024-02-11] MEDS ORDERED: Ephedrine Sulfate 50 MG/ML IV PRN (19:00)
[2024-02-11] MEDS: Lactated Ringers 1,000 ML IV SCH ×2 (19:04→20:00)
[2024-02-11] MEDS ORDERED: FENTANYL 2 MCG-BUPIV 0.125%-NS 250 ML Epidur 250 ML EPIDURAL ONE (19:13)
[2024-02-11] MEDS ORDERED: Lactated Ringers 1,000 ML IV ONE (19:13)
[2024-02-11 19:14] LABS: BASOPHIL % 0.2 % (0.1-1.2); Basophil (Absolute #) 0.03 x10^3/uL (0.01-0.08); Eosinophil % 0.1 % (0.7-5.8); Eosinophil (Absolute #) 0.01 x10^3/uL (0.04-0.36); Hematocrit 33.2 % (34.1-44.9); Hemoglobin 10.8 g/dL (11.2-15.7); IMMATURE GRAN # 0.12 x10^3u/L (0.001-0.031); Lymphocyte (Absolute #) 1.37 x10^3/uL (1.18-3.74); Lymphocytes % 10.9 % (19.3-51.7); Mean Cell Volume 81.8 fL (79.4-94.8); Mean Corpuscular Hemoglobin 26.6 pg (25.6-32.2); Mean Corpuscular Hgb Concent. 32.5 g/dL (32.2-35.5); Mean Platelet Volume 9.2 fL (9.4-12.3); Monocyte (Absolute #) 0.52 x10^3/uL (0.24-0.86); Monocytes % 4.1 % (4.7-12.5); Neutrophil % 83.7 % (34.0-71.1); Platelet Count 274 x10^3/uL (182-369); Red Blood Count 4.06 x10^6/uL (3.93-5.22); Red Cell Distribution Width 14.6 % (11.7-14.4); White Blood Count 12.6 x10^3/uL (3.98-10.04)
[2024-02-11 19:36] LABS: Barbiturate,Urine NEGATIVE (NEGATIVE); Benzodiazepine,Urine NEGATIVE (NEGATIVE); Cocaine,Urine NEGATIVE (NEGATIVE); Methadone,Urine NEGATIVE (NEGATIVE); Opiate,Urine NEGATIVE (NEGATIVE); PCP,Urine NEGATIVE (NEGATIVE); THC,Urine NEGATIVE (NEGATIVE)
[2024-02-11] MEDS: FENTANYL 2 MCG-BUPIV 0.125%-NS 250 ML Epidur 250 ML EPIDURAL SCH (19:45)
[2024-02-11 19:59] LABS: ABO TYPING B; Antibody Screen NEGATIVE (NEGATIVE); RH TYPING POSITIVE
[2024-02-11] MEDS ORDERED: PITOCIN 30 UNITS/ LR 500 ML 500 ML IV ONE (23:58)
[2024-02-12] MEDS ORDERED: NORCO 5/325 MG PO PRN (01:24)
[2024-02-12] MEDS ORDERED: Zofran 4 MG/2 ML VIAL IV PRN (01:30)
[2024-02-12] MEDS: PITOCIN 30 UNITS/ LR 500 ML 30 UNITS/500 ML PLAST..BAG IV SCH (01:33)
[2024-02-12] MEDS: MOTRIN 400 MG PO PRN (02:24)
[2024-02-12] MEDS: Dermoplast Spray TP PRN (02:24)
[2024-02-12] MEDS: TYLENOL EXTRA STRENGTH 500 MG PO PRN (04:53)
[2024-02-12 10:09] VITALS: RESP 16
[2024-02-12] MEDS: TUCKS TP PRN (10:20)
[2024-02-12] MEDS: Docusate Sodium 100 MG PO SCH (10:21)
[2024-02-12] MEDS: FERREX 150 PO SCH (10:21)
[2024-02-12 12:10] LABS: Absolute Neutrophil Ct (ANC) 9.92 x10^3/uL (1.56-6.13); BASOPHIL % 0.2 % (0.1-1.2); Basophil (Absolute #) 0.02 x10^3/uL (0.01-0.08); Eosinophil % 0.2 % (0.7-5.8); Eosinophil (Absolute #) 0.03 x10^3/uL (0.04-0.36); Hematocrit 31.5 % (34.1-44.9); Hemoglobin 9.9 g/dL (11.2-15.7); IMMATURE GRAN # 0.08 x10^3u/L (0.001-0.031); IMMATURE GRAN % 0.6 % (0.001-0.429); Lymphocyte (Absolute #) 1.42 x10^3/uL (1.18-3.74); Lymphocytes % 11.4 % (19.3-51.7); Mean Cell Volume 83.6 fL (79.4-94.8); Mean Corpuscular Hemoglobin 26.3 pg (25.6-32.2); Mean Corpuscular Hgb Concent. 31.4 g/dL (32.2-35.5); Mean Platelet Volume 9.3 fL (9.4-12.3); Monocyte (Absolute #) 0.95 x10^3/uL (0.24-0.86); Monocytes % 7.6 % (4.7-12.5); Platelet Count 268 x10^3/uL (182-369); Red Blood Count 3.77 x10^6/uL (3.93-5.22); Red Cell Distribution Width 14.8 % (11.7-14.4); White Blood Count 12.4 x10^3/uL (3.98-10.04)
[2024-02-13] VITALS: O2SAT 100
[2024-02-13 08:24] VITALS: BP 115/61; PULSE 66; TEMP 97.3
--- NOTE | 2024-02-13 09:57 | PCM.DS ---
Discharge Summary Date of Admission: 02/11/24 21:16 Admitting Physician: ROLDAN PRETTY Consults: Consults on Case 02/12/24 12:26 Navigation ONCE Primary Care Provider: ROLDAN PRETTY Allergies Allergies azithromycin [From Zithromax] Allergy (Intermediate, Verified 02/04/24 02:05) [facility] Summary - Hospital Course Hospital Course: patient arrived in spontaneous labor, uncomplicated vaginal delivery. bottle feeding, doing well - Vitals & Intake/Output Vital Signs: Vital Signs Temperature 97.3 F 02/13/24 08:00 Pulse Rate 66 02/13/24 08:00 Respiratory Rate 16 02/13/24 08:00 Blood Pressure 115/61 02/13/24 08:00 O2 Sat by Pulse Oximetry 100 02/13/24 08:00 Intake & Output: Intake & Output 02/10/24 02/11/24 02/12/24 02/13/24 11:59 11:59 11:59 11:59 Intake Total 1900 1700 Output Total 3225 Balance -1325 1700 Weight 78.018 kg - Lab Result Diagrams: 02/12/24 12:05 Lab Results-Last 24 Hrs: Lab Results-Last 24 Hours 02/12/24 Range/Units 12:05 WBC 12.4 H (3.98-10.04) x10^3/uL RBC 3.77 L (3.93-5.22) x10^6/uL Hgb 9.9 L (11.2-15.7) g/dL Hct 31.5 L (34.1-44.9) % MCV 83.6 (79.4-94.8) fL MCH 26.3 (25.6-32.2) pg MCHC 31.4 L (32.2-35.5) g/dL RDW 14.8 H (11.7-14.4) % Plt Count 268 (182-369) x10^3/uL MPV 9.3 L (9.4-12.3) fL Gran % 80.0 H (34.0-71.1) % Immature Gran % (Auto) 0.6 H (0.001-0.429) % Nucleat RBC Rel Count 0.0 (0.00-0.2) % Eos # (Auto) 0.03 L (0.04-0.36) x10^3/uL Immature Gran # (Auto) 0.08 H (0.001-0.031) x10^3u/L Absolute Lymphs (auto) 1.42 (1.18-3.74) x10^3/uL Absolute Monos (auto) 0.95 H (0.24-0.86) x10^3/uL Absolute Nucleated RBC 0.00 (0.00-0.012) x10^3u/L Lymphocytes % 11.4 L (19.3-51.7) % Monocytes % 7.6 (4.7-12.5) % Eosinophils % 0.2 L (0.7-5.8) % Basophils % 0.2 (0.1-1.2) % Absolute Granulocytes 9.92 H (1.56-6.13) x10^3/uL Basophils # 0.02 (0.01-0.08) x10^3/uL - Procedures and Test Procedures and Tests throughout Hospitalization: Therapy Orders & Screens 02/12/24 00:33 Standby STAT Comment: Diagnosis: IUP Discharge Exam General Appearance: no apparent distress Neurologic Exam: alert, oriented x 3 Respiratory Exam: normal breath sounds, lungs clear, No respiratory distress Cardiovascular Exam: regular rate/rhythm, normal heart sounds Gastrointestinal/Abdomen Exam: soft, other (fundus firm), No tenderness, No mass Extremity Exam: normal inspection, normal range of motion Final Diagnosis/Problem List - Final Discharge Diagnosis/Problem (1) Vaginal delivery Current Visit: Yes Status: Acute Code(s): O80 - ENCOUNTER FOR FULL-TERM UNCOMPLICATED DELIVERY - Discharge Disposition: Home, Self-Care Condition: Stable Prescriptions: Continue 21/Iron Fu/Folic Acid [ Complete Caplet] 1 tab PO DAILY Ondansetron ODT 4 MG [Zofran Odt 4 mg] 4 mg PO Q6H PRN PRN #20 tablet PRN Reason: Nausea Follow up with: ROLDAN PRETTY MD [Primary Care Provider] - 6 weeks
[2024-02-13] MEDS: Adacel Vial IM ONE (14:06)
== END 2024-02-13 15:48 | disposition home or self-care (01) | DRG 807 ==
LOC: OB 16:25 → OBSVTOIN 21:16 → MED SURG 02-12 19:58
PROVIDERS: ADMIT Family Medicine; ATTEND Family Medicine
PROC: 10E0XZZ Delivery of Products of Conception, External Approach (ICD-10-PCS; principal; 2024-02-12)
DX: O80 Encounter for full-term uncomplicated delivery (principal); Z37.0 Single live birth; Z3A.39 39 weeks gestation of pregnancy
CPT/HCPCS: 36415; 80307; 85025; 86850; 86900; 86901; 90715; 94799; 96372; J2590; A9270-GY